=== PATIENT | male | born 1965 | race Caucasian/White ===

== ENCOUNTER 2017-05-07 13:53 | Emergency (ER) | payer OTHER ==
[2017-05-07] MEDS ORDERED: DIPH,PERTUSS(ACELL),TET VAC/PF 0.5 ML VIAL IM ONE (15:24)
--- NOTE | 2017-05-07 17:28 | ER PHYSICIAN DOCUMENTATION ---
Physician Documentation [facility] Name:Artie Caicedo Age:52 yrs Sex:Male :1965 Arrival Date:05/07/2017 Time:13:53 Bed6 Private MD: Camacho العراقي Disposition: 05/09 09:07 Chart complete. tl1 Disposition: 05/07/17 17:15 Discharged to Home/Self Care. Impression: Finger Laceration. - Condition is Good. - Discharge Instructions: FINGER LACERATION - LACERATION, Hand. - Prescriptions for Keflex 500 mg Oral - take 1 capsule by ORAL route every 6 hours for 5 days; 20 capsule. - Medical Reconciliation form form. - Follow up: Emergency Department; When: 10 - 14 days; Reason: Staple/Suture removal. Follow up: Private Physician; When: 2 - 3 days; Reason: Recheck today's complaints. - Problem is new. - Symptoms have improved. HPI: 05/07 14:38 This 52 yrs old Male presents to ER with complaints of Fall Injury. tl1 05/09 08:36 He slipped on a snowy slope and crashed into some rocks below. He sustained a couple of tl1 small lacerations to his right dorsal thumb, and it is for those that he comes in now. He bruised his tailbone a bit, but has no other injury.. Historical: - Allergies: No known drug Allergies; - Home Meds: 1. Cymbalta oral - PMHx: DEPRESSION; - PSHx: None; - Tetanus: unknown. - Ebola Screening: : Patient negative for fever greater than or equal to 101.5 degrees Fahrenheit, and additional compatible Ebola Virus Disease symptoms. Patient denies exposure to infectious person. Patient denies travel to an Ebola-affected area in the 21 days before illness onset. No symptoms or risks identified at this time. . - Immunization history: Unable to Obtain. - Social history: Smoking status: Patient states was never smoker of tobacco. Patient uses alcohol occasionally. ROS: 05/07 15:00 MS/extremity: Positive for laceration. tl1 All other systems are negative. Exam: 15:00 Constitutional: This is a well developed, well nourished patient who is awake, alert, tl1 and in no acute distress. 15:00 Head/Face: Normocephalic, atraumatic. tl1 15:00 Neck: ROM/movement: is normal, is supple, pain, is not appreciated. 15:00 Chest/axilla: Palpation: tenderness, is not appreciated. 15:00 Cardiovascular: Rate: normal, Rhythm: regular. 15:00 Respiratory: Respirations: normal, Breath sounds: are normal. 15:00 Abdomen/GI: Palpation: abdomen is soft and non-tender. 15:00 Back: Exam negative for pain, He does have some slight TTP over his coccyx, but no apparent mobility there.. 15:00 Musculoskeletal/extremity: Extremities: grossly normal except: Right thumb: there is a transverse superficial laceration to the dorsal aspect of the mid proximal phalanx, 1 cm length, and a C shaped 1.5 cm lageration of the radial aspect of the eponychium. 15:00 Neuro: Exam negative for acute changes. Vital Signs: 15:03 BP 149 / 79; Pulse 83; Resp 18; Temp 98.0; Pulse Ox 95% on R/A; Weight 81.65 kg; Height rs 6 ft. (182.88 cm); Pain 4/10; 15:03 Body Mass Index 24.41 (81.65 kg, 182.88 cm) rs Laceration: 15:00 Wound Repair of 2.5cm ( 1.0in ) subcutaneous laceration to dorsal aspect of distal tl1 phalanx of right thumb. Distal neuro/vascular/tendon intact. Anesthesia: Digital block administered with 3 mls of 0.5% marcaine. Wound prep: Extensive cleansing, Copious irrigation. Skin closed with 4 4-0 Ethilon using Interrupted sutures. Dressed with Bacitracin, tube gauze. Patient tolerated well. MDM: 14:33 Patient medically screened. tl1 16:00 Data reviewed: vital signs, nurses notes, and as a result, I will discharge patient. tl1 Counseling: I had a detailed discussion with the patient and/or guardian regarding: the historical points, exam findings, and any diagnostic results supporting the discharge/admit diagnosis, the need for outpatient follow up, to return to the emergency department if symptoms worsen or persist or if there are any questions or concerns that arise at home. Response to treatment: the patient's symptoms have mildly improved after treatment. 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 rs Exp: 01/16/2019. Lot #: [id number]. } Route: IM; Site: left deltoid; Signatures: Cyndi Covarrubias RN RN rs Pavlish, Lena, RN RN lp Leigh, Tom, MD MD tl1
--- NOTE | 2017-05-07 17:28 | ER NURSING DOCUMENTATION ---
Nurse's Notes [facility] Name:Artie Caicedo Age:52 yrs Sex:Male :1965 Arrival Date:05/07/2017 Time:13:53 Bed6 Private MD: Diagnosis:Finger Laceration Presentation: 05/07 13:59 Acuity: CANDELARIA 3 rh 14:52 Presenting complaint: Patient states: He was sliding down snow and crashed at the bottom. C/O tailbone pain and two lac on his tight hand. No neck pain, did not hit his head or loose consciousness. Transition of care: patient was not received from another setting of care. 14:52 Method Of Arrival: Private Vehicle rs Triage Assessment: 14:56 General: Appears comfortable, well developed, well nourished, well groomed, Behavior is rs cooperative, pleasant. Pain: Complains of pain in tailbone Pain does not radiate. Pain currently is 4 out of 10 on a pain scale. Neuro: No deficits noted. Level of Consciousness is awake, alert, Oriented to person, place, time, event. Cardiovascular: No deficits noted. Capillary refill < 3 seconds Pulses are 3+ in left radial artery. Respiratory: No deficits noted. Respiratory effort is even, unlabored, Respiratory pattern is regular, symmetrical. Derm: Skin is pink, warm & dry. Injury Description: Laceration sustained to two lac on right thumb, jagged, no active bleeding. CMS intact. Historical: - Allergies: No known drug Allergies; - Home Meds: 1. Cymbalta oral - PMHx: DEPRESSION; - PSHx: None; - Tetanus: unknown. - Ebola Screening: : Patient negative for fever greater than or equal to 101.5 degrees Fahrenheit, and additional compatible Ebola Virus Disease symptoms. Patient denies exposure to infectious person. Patient denies travel to an Ebola-affected area in the 21 days before illness onset. No symptoms or risks identified at this time. . - Immunization history: Unable to Obtain. - Social history: Smoking status: Patient states was never smoker of tobacco. Patient uses alcohol occasionally. Screenin:06 Infectious Disease Risk None. Abuse screen: Denies threats or abuse. Nutritional rs screening: No deficits noted. Vital Signs: 15:03 BP 149 / 79; Pulse 83; Resp 18; Temp 98.0; Pulse Ox 95% on R/A; Weight 81.65 kg; Height rs 6 ft. (182.88 cm); Pain 4/10; 15:03 Body Mass Index 24.41 (81.65 kg, 182.88 cm) ED Course: 13:55 Patient arrived in ED. ama 13:59 Triage completed. 14:33 Camacho Garcia MD is Attending Physician. tl1 14:45 Notified ED Physician of patient's arrival and chief complaint. Dr. Garcia notified. Arm rs band placed on Bed in low position Call Light in Reach HOB Elevated Side rails up x1. Family accompanied patient. 14:51 Cyndi Covarrubias, RN is Primary Nurse. rs 15:06 Valuables Remains with patient. Door closed. Noise minimized. Verbal reassurance given. rs 15:29 Wound care to laceration located on right thumb was Irrigation Normal Saline debrided rs using distal lac is a flap. It was debrided with a gauze 2 x 2 after irrigation. dressed with Kerlix. 17:25 Dressings: Tube gauze X 1;. 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 rs Exp: 01/16/2019. Lot #: [id number]. } Route: IM; Site: left deltoid; Outcome: 17:15 Discharge ordered by . tl1 17:25 Discharged to home ambulatory. lp 17:25 Condition: good 17:25 Instructed on discharge instructions, follow up and referral plans. medication usage, wound care. 17:26 Patient left the ED. 05/09 13:14 Discharge F/U Call: Unable to reach: no answer Signatures: Cyndi Covarrubias RN RN Lupe Phan RN RN John Franks, Reg Reg Camacho Sorai MD MD tl1 Hofsess, Rachel
== END 2017-05-07 17:27 | disposition home or self-care (01) ==
LOC: ER 13:53
DX: S61.011A Laceration without foreign body of right thumb without damage to nail, initial encounter (principal); W00.2XXA Other fall from one level to another due to ice and snow, initial encounter; Y92.838 Other recreation area as the place of occurrence of the external cause; Y93.01 Activity, walking, marching and hiking; Z23 Encounter for immunization; Z79.899 Other long term (current) drug therapy
CPT/HCPCS: 12041; 90471; 99283

== ENCOUNTER 2017-05-10 07:53 | Emergency (ER) | payer OTHER ==
--- NOTE | 2017-05-10 08:22 | ER NURSING DOCUMENTATION ---
Nurse's Notes [facility] Name:Artie Caicedo Age:52 yrs Sex:Male :1965 Arrival Date:05/10/2017 Time:07:53 Bed1 Private MD: Diagnosis:Laceration - Recheck Presentation: 05/10 08:10 Presenting complaint: Patient states: wound recheck of right thumb stitches, lacerated nf and stitched Sunday, has been performing daily wound cleansing and dressing changes, returned to ER per instructions by Rudi, intended suture removal next . Transition of care: patient was not received from another setting of care. 08:10 Acuity: CANDELARIA 5 nf 08:10 Method Of Arrival: Private Vehicle nf Triage Assessment: 08:00 Injury Description: right hand third digit lacerations x2, both wounds with stitches nf intact and well approximated, dried blood drainage, no exudate, no swelling or redness or streaking up the arm, afebrile. 08:14 General: Appears well nourished, well groomed, Behavior is pleasant. Pain: Denies pain. nf Historical: - Allergies: No known drug Allergies; - Home Meds: 1. Cymbalta oral - PMHx: DEPRESSION; Finger Laceration (May 07, 2017); - PSHx: NONE; - Tetanus: < 10 years. - Ebola Screening: : No symptoms or risks identified at this time. . - Social history: Smoking status: unknown if patient ever smoked tobacco. - Immunization history: NA. Screenin:15 Infectious Disease Risk None. Abuse screen: Denies threats or abuse. Nutritional nf screening: No deficits noted. Vital Signs: 08:00 Temp 98.1(O); Pain 0/10; nf ED Course: 07:55 Patient arrived in ED. ama 08:10 Kendy Figueroa, GOGO is Primary Nurse. nf 08:10 Dressings: Band aid. Wound care was cleaned with soap and water. nf 08:13 Triage completed. nf 08:15 Family accompanied patient. nf 08:15 Valuables Remains with patient. nf 08:22 Jacobo Grullon MD is Attending Physician. nf Administered Medications: No medications were administered Outcome: 08:12 Discharged to home ambulatory, with significant other. nf 08:12 Condition: good 08:12 Discharge Assessment: Patient awake, alert and oriented x 3. No cognitive and/or functional deficits noted. Patient verbalized understanding of disposition instructions. 08:12 Discharge instructions given to patient, family, Instructed on discharge instructions, follow up and referral plans. wound care, Demonstrated understanding of instructions. 08:12 Recheck visit only Wound recheck 08:22 Discharge ordered by . nf 08:22 Patient left the ED. nf Signatures: Kendy Figueroa RN RN Jacobo Escobar MD MD be Averdick, Andrew, Reg Reg ama
--- NOTE | 2017-05-12 08:22 | ER PHYSICIAN DOCUMENTATION ---
Physician Documentation [facility] Name:Artie Caicedo Age:52 yrs Sex:Male :1965 Arrival Date:05/10/2017 Time:07:53 Bed1 Private MD: Jacobo Teran Disposition: 05/10/17 08:22 Discharged to Home/Self Care. Impression: Laceration - Recheck. - Condition is Good. - Medical Reconciliation form form. - Follow up: Emergency Department; When: , as previously instructed; Reason: Staple/Suture removal. HPI: 05/10 08:00 This 52 yrs old Male presents to ER via Private Vehicle with complaints of be Wound Recheck - R THUMB. 08:00 Patient presents to ED for recheck of: laceration. be Historical: - Allergies: No known drug Allergies; - Home Meds: 1. Cymbalta oral - PMHx: DEPRESSION; Finger Laceration (May 07, 2017); - PSHx: NONE; - Tetanus: < 10 years. - Ebola Screening: : No symptoms or risks identified at this time. . - Social history: Smoking status: unknown if patient ever smoked tobacco. - Immunization history: NA. ROS: 08:00 Skin: Positive for laceration(s). be 08:00 All other systems are negative. Exam: 08:00 Skin: Wound recheck: Suture laceration closure: the wound is healing well, the edges be are well approximated, no evidence of dehiscence, no drainage, no erythema, no swelling. Vital Signs: 08:00 Temp 98.1(O); Pain 0/10; nf MDM: 08:00 Data reviewed: vital signs, nurses notes, and as a result, I will discharge patient. be 08:36 Patient medically screened. be Dispensed Medications: No medications were administered Signatures: Kendy Figueroa RN RN Jacobo Escobar MD MD be
== END 2017-05-10 08:22 | disposition home or self-care (01) ==
LOC: ER 07:53
DX: Z48.00 Encounter for change or removal of nonsurgical wound dressing (principal); S61.011D Laceration without foreign body of right thumb without damage to nail, subsequent encounter
CPT/HCPCS: 99281

== ENCOUNTER 2017-05-17 07:13 | Emergency (ER) | payer OTHER ==
--- NOTE | 2017-05-17 07:25 | ER NURSING DOCUMENTATION ---
Nurse's Notes [facility] Name:Artie Caicedo Age:52 yrs Sex:Male :1965 Arrival Date:05/17/2017 Time:07: Bed1 Private MD: Diagnosis:Suture Removal Presentation: 05/17 07:22 Presenting complaint: Patient states: here for suture removal from right thumb. st Transition of care: Home. 07:22 Acuity: CANDELARIA 4 st 07:22 Method Of Arrival: Private Vehicle st Vital Signs: 07:23 BP 128 / 85; Pulse 74; Temp 98.0; Pulse Ox 92% on R/A; Pain 1/10; st ED Course: 07:15 Patient arrived in ED. ama 07:22 Danisha King RN is Primary Nurse. st 07:[address] 07:23 Removed sutures from dorsal aspect of proximal phalanx of right thumb Suture site is st well healed Patient tolerated well. Administered Medications: No medications were administered Outcome: 07:24 Discharged to home ambulatory. st 07:24 Condition: improved 07:24 Instructed on wound care. 07:24 No charge visit due to suture removal. 07:24 Discharge ordered by MD. st 07:25 Patient left the ED. st Signatures: Danisha King RN RN John Wells, Reg Reg ama
== END 2017-05-17 07:25 | disposition home or self-care (01) ==
LOC: ER 07:13
DX: Z48.02 Encounter for removal of sutures (principal); S61.011D Laceration without foreign body of right thumb without damage to nail, subsequent encounter